=== PATIENT | male | born 2000 | race Caucasian/White ===

== ENCOUNTER 2023-12-08 16:32 | Emergency (ER) | payer SELFPAY ==
[~2023-12-08] VITALS: Ht 172.7 cm; Wt 59.0 kg
[2023-12-08 16:36] VITALS: TEMP 98.6; O2SAT 98
[2023-12-08 17:08] LABS: BASOPHILS % 0.2 % (0.0-2.0); EOSINOPHILS % 0.1 % (0.0-5.0); HEMATOCRIT. 50.6 % (42.0-52.0); HEMOGLOBIN. 16.8 g/dL (14.0-18.0); LYMPHOCYTES % 12.7 % (20.0-50.0); MEAN CORPUSCULAR HEMOGLOBIN 30.8 pg (28.0-32.0); MEAN CORPUSCULAR HGB CONC 33.3 g/dL (31.0-37.0); MEAN CORPUSCULAR VOLUME 92.6 fL (80.0-94.0); MONOCYTES % 3.8 % (2.0-8.0); NEUTROPHILS % 83.2 % (40.0-76.0); PLATELET 255 x1000/uL (130-400); RED BLOOD CELL COUNT 5.47 mill/uL (4.7-6.1); RED CELL DISTRIBUTION WIDTH 13.3 % (11.6-14.6); WHITE BLOOD COUNT 13.1 x1000/uL (4.5-11.0)
[2023-12-08 17:13] LABS: CHLORIDE 103 mEq/L (98-107); POTASSIUM 4.5 mEq/L (3.5-5.1); SODIUM 137 mEq/L (136-145)
[2023-12-08 17:14] LABS: CALCIUM 9.9 mg/dL (8.7-10.4); CARBON DIOXIDE 29 mEq/L (21-32)
[2023-12-08 17:19] LABS: GLUCOSE 143 mg/dL (70-105); UREA NITROGEN BLOOD 7 mg/dL (9-23)
[2023-12-08 17:21] LABS: ALANINE AMINOTRANSFERASE 22 IU/L (10-49); ALBUMIN 5.1 g/dL (3.2-4.8); ASPARTATE AMINOTRANSFERASE 18 IU/L (<34); BILIRUBIN DIRECT 0.2 mg/dL (<=3.0); BILIRUBIN TOTAL 0.8 mg/dL (0.1-1.0); PROTEIN TOTAL 7.9 g/dL (6.0-8.3)
[2023-12-08] MEDS: KETOROLAC 30MG/ML VIAL IM ONE (18:41)
[2023-12-08 18:55] LABS: CLARITY URINE CLOUDY (CLEAR); COLOR URINE DARK YELLOW (YELLOW); GLUCOSE URINE NEGATIVE (NEGATIVE); KETONES URINE TRACE (NEGATIVE); LEUKOCYTE ESTERASE URINE NEGATIVE (NEGATIVE); NITRITE URINE NEGATIVE (NEGATIVE); OCCULT BLOOD URINE NEGATIVE (NEGATIVE); PROTEIN URINE 1+ (NEGATIVE); SPECIFIC GRAVITY URINE 1.021 (1.005-1.030)
[2023-12-08 19:39] LABS: BACTERIA URINE NONE SEEN; CALCIUM OXALATE CRYSTALS URINE 1+ /lpf; MUCUS URINE 1+ /lpf (NONE/TRACE); RBC URINE NONE SEEN /hpf (0-2); WBC URINE NONE SEEN /hpf (0-2)
[2023-12-08] MEDS ORDERED: ACET-2708 MT (21:27)
[2023-12-08 21:37] VITALS: BP 128/75; PULSE 54; RESP 14
== END 2023-12-08 21:38 | disposition home or self-care (01) ==
LOC: ER 16:32
DX: R10.11 Right upper quadrant pain (principal)
CPT/HCPCS: 99285; 74176; 76705; 80076; 80048; 81003; 83690; 85025; 36415; 96372; J1885